=== PATIENT | male | born 1965 | race Caucasian/White ===

== ENCOUNTER 2017-11-20 10:56 | Emergency (ER) | payer OTHER ==
[2017-11-20 11:28] VITALS: BMI 33.4
--- NOTE | 2017-11-20 12:25 | PDOC ---
History of Present Illness - General History Source: Patient Exam Limitations: No Limitations - History of Present Illness Initial Comments: 11/20/17 15:07 Patient is a 55 year old male with a significant past medical history of Diabetes (Non insulin dependent), who presents to the ED with complaints of difficulty urinating for 3 days. Patient reports experiencing urinary urgency 3 days ago, stating he would feel the urge to urinate but only little trickles would begin to come out. He reports experiencing superpubic pain and episodes of hematuria, stating his urine stream would begin dark but look like blood towards the end of the duration. Pt endorses having subjective fever yesterday. Patient reports experiencing associated symptoms of diffuse superpubic pain, that he states is a sharp 7/10 pain that only began while he was urinating. Patient currently states he is in a monogamous relationship with as well as denies any participation in anal intercouse. Pt denies any back pain, abdominal pain. Denies chest pain, Sob. Denies nausea, vomiting. Denies , chills. Denies penile discharge, genital pain. Denies change in appetite, change in diet. Denies trauma to affected area. Denies any other symptoms. Allergies: None Social history: No smoking. No alcohol. No illicit drugs. Surgical history: PMD: Dr. Nieto <Vincent Grimes - Last Filed: 11/20/17 15:07> <Alex Millan - Last Filed: 11/20/17 16:40> - General Chief Complaint: Urinary Problem Stated Complaint: URINARY PROBLEM, JOINT PAIN Time Seen by Provider: 11/20/17 12:00 Past History <Vincent Grimes - Last Filed: 11/20/17 15:07> - Past Medical History COPD: No Diabetes: Yes Hypercholesterolemia: Yes - Suicide/Smoking/Psychosocial Hx Smoking History: Never smoked <Alex Millan - Last Filed: 11/20/17 16:40> - Past Medical History Allergies/Adverse Reactions: Allergies Allergy/AdvReac Type Severity Reaction Status Date / Time No Known Allergies Allergy Verified 11/20/17 11:25 Home Medications: Ambulatory Orders Atorvastatin Ca 40 mg PO DAILY 11/20/17 Glipizide ER 2.5 mg PO DAILY 11/20/17 Levofloxacin [Levaquin] 750 mg PO DAILY #4 tablet 11/20/17 Lisinopril-Hctz 10-12.5 mg Tab 10 mg PO DAILY 11/20/17 Metformin HCl 1,000 mg PO BID 11/20/17 Review of Systems - Review of Systems Able to Perform ROS?: Yes Comments:: 11/20/17 15:07 CONSTITUTIONAL: +subjectife fever No reported: Chills, Diaphoresis, Generalized Weakness, Malaise, Loss of Appetite HEENT: No reported: Rhinorrhea, Nasal Congestion, Throat Pain, Throat Swelling, Difficulty Swallowing, Mouth Swelling, Ear Pain, Eye Pain, Visual Changes CARDIOVASCULAR: No reported: Chest Pain, Syncope, Palpitations, Irregular Heart Rate, Lightheadedness, Peripheral Edema RESPIRATORY: No reported: Cough, Shortness of Breath, SOB with Exertion, Orthopnea, Wheezing , Stridor, Hemoptysis GASTROINTESTINAL: No reported: Abdominal pain, Abdominal Distension, Nausea, Vomiting, Diarrhea, Constipation, Melena, Hematochezia GENITOURINARY: +Hematuria. +Urinary urgency, No reported: Dysuria, Frequency, Hesitancy, Flank Pain, Genital Pain MUSCULOSKELETAL: +Diffuse lower back pain No reported: Myalgia, Arthralgia, Joint Swelling, Back pain, Neck Pain SKIN: No reported: Rash, Itching, Pallor HEMATOLOGIC/IMMUNOLOGIC: No reported: Easy Bleeding, Easy Bruising, Lymphadenopathy, Frequent infections ENDOCRINE: No reported: Unexplained Weight Gain, Unexplained Weight Loss, Heat Intolerance , Cold Intolerance NEUROLOGIC: No reported: Headache, Focal Weakness, Paresthesias, Vertigo, Lightheadedness, Unsteady Gait, Seizure, Mental Status Changes, Incontinence PSYCHIATRIC: No reported: Anxiety, Depression All Other Systems: Reviewed and Negative <Vincent Grimes - Last Filed: 11/20/17 15:07> *Physical Exam - Vital Signs Last Vital Signs Temp Pulse Resp BP Pulse Ox 98.9 F 96 H 19 109/72 97 11/20/17 11:25 11/20/17 11:25 11/20/17 11:25 11/20/17 11:25 11/20/17 11:25 - Physical Exam Comments: 11/20/17 15:08 GENERAL: The patient is awake, alert, and fully oriented, Nontoxic - in no acute distress. HEAD: Normocephalic, atraumatic. EYES: extraocular movements intact, sclera anicteric, conjunctiva clear. ENT: Normal voice, Moist mucous membranes. NECK: Normal range of motion, No JVD LUNGS: Breath sounds equal, clear to auscultation bilaterally. No wheezes, no rhonchi, no rales. HEART: Regular rate and rhythm, normal S1 and S2 without murmur, rub or gallop. ABDOMEN: Soft, nontender, normoactive bowel sounds. No guarding, no rebound. No masses. No CVA tenderness GASTROURINARY: No lesions. No testicular tenderness. Normal testicular lei. No penile discharge EXTREMITIES: Normal range of motion, no edema. No clubbing or cyanosis. No cords , erythema, or tenderness. NEUROLOGICAL: No facial asymmetry, Normal speech, normal gait. PSYCH: Normal mood, normal affect. SKIN: Warm, Dry, normal turgor. <Vincent Grimes - Last Filed: 11/20/17 15:07> - Vital Signs Last Vital Signs Temp Pulse Resp BP Pulse Ox 98.9 F 96 H 19 109/72 97 11/20/17 11:25 11/20/17 11:25 11/20/17 11:25 11/20/17 11:25 11/20/17 11:25 <Alex Millan - Last Filed: 11/20/17 16:40> ED Treatment Course - LABORATORY CBC & Chemistry Diagram: 11/20/17 12:51 11/20/17 12:51 - ADDITIONAL ORDERS Additional order review: Laboratory Results 11/20/17 11/20/17 12:51 12:51 Sodium 135 L Potassium 3.5 Chloride 99 Carbon Dioxide 28 Anion Gap 8 BUN 13 Creatinine 1.1 Creat Clearance w eGFR > 60 Random Glucose 186 H Calcium 9.4 Total Bilirubin 1.0 AST 23 ALT 69 Alkaline Phosphatase 66 Total Protein 7.6 Albumin 3.7 Urine Color Dkyellow Urine Appearance Cloudy Urine pH 6.0 Ur Specific [place] 1.021 Urine Protein 2+ H Urine Glucose (UA) 1+ H Urine Ketones Trace H Urine Blood 3+ H Urine Nitrite Negative Urine Bilirubin Negative Urine Urobilinogen Negative Ur Leukocyte Esterase 2+ H Urine WBC (Auto) 383 Urine RBC (Auto) 2730 Ur Epithelial Cells Rare 11/20/17 12:51 RBC 4.74 MCV 83.9 MCHC 32.8 RDW 13.0 MPV 8.9 Neutrophils % 86.2 H Lymphocytes % 5.3 L Monocytes % 8.2 Eosinophils % 0.0 Basophils % 0.3 - Medications Given in the ED: ED Medications Discontinued Medications Generic Name Dose Route Start Last Admin Trade Name Theresa PRN Reason Stop Dose Admin Levofloxacin 750 mg in 150 mls @ 100 mls/hr 11/20/17 13:24 11/20/17 13:49 Levaquin 750 Mg Premixed Ivpb - IVPB 11/20/17 14:53 100 mls/hr ONCE ONE Administration <Vincent Grimes - Last Filed: 11/20/17 15:07> - LABORATORY CBC & Chemistry Diagram: 11/20/17 12:51 11/20/17 12:51 <Alex Millan - Last Filed: 11/20/17 16:40> Medical Decision Making - Medical Decision Making 11/20/17 12:23 52y M hx of dm, htn, hl, presents with complaint of difficulty urinating for 2- 3 days, subjective fever, hematuria. Fever/chills started yesterday last dose of motrin this am. Endorsers myalgias, dysuria, frequency. Hematuria more prominent at the end of his stream Endorses suprapubic pain that is present only with urinating. no diarrhea, penile dc, back pain, chest pain, sob. suspect uti will ck basic labs as pt endorsed subjective fever 11/20/17 14:03 The patient's blood work was reviewed he has a white count of 17, his you a is also consistent with UTI. pt is well appearing, in no distress afebrile Will start with a dose of Levaquin will have patient follow-up with PMD 11/20/17 15:22 I discussed the physical exam findings, ancillary test results and final diagnoses with the patient. I answered all of the patient's questions. The patient was satisfied with the care received and felt comfortable with the discharge plan and treatment plan. The patient will call their primary care physician within 24 hours to arrange follow-up and will return to the Emergency Department with any new, persistent or worsening symptoms. 11/20/17 16:38 pt was noted to be febrile at discharge given tylenol i recommended admission for iv abx due to his fever, however the pt states he feels fine and would prefer outpatient management. I discussed with the patient that if he has persistent fever, any back pain, vomiting, admoinal pain or other concners, to return immediately and we will treat him for his UTI. will discharge the pt now with PMD fu with abx <Alex Millan - Last Filed: 11/20/17 16:40> *DC/Admit/Observation/Transfer - Attestations Scribe Attestion: 11/20/17 15:08 Documentation prepared by Vincent Grimes, acting as medical billing and coding instructor for Alex Millan MD, MD/DO. <Vincent Grimes - Last Filed: 11/20/17 15:07> - Discharge Dispostion Admit: No <Alex Millan - Last Filed: 11/20/17 16:40> Diagnosis at time of Disposition: Urinary tract infection Qualifiers: Urinary tract infection type: acute cystitis Hematuria presence: with hematuria Qualified Code(s): N30.01 - Acute cystitis with hematuria - Discharge Dispostion Disposition: HOME Condition at time of disposition: Improved - Prescriptions Prescriptions: Levofloxacin [Levaquin] 750 mg PO DAILY #4 tablet - Referrals Referrals: [facility] [Provider Group] - Patient Instructions Printed Discharge Instructions: DI for Urinary Tract Infection (UTI) Additional Instructions: Regrese al departamento de emergencia de inmediato con CUALQUIER sntoma nuevo, persistente o que empeore incluyendo fiebre / escalofros, dolor de espalda, dolor abdominal, incapacidad para tolerar la ingesta oral u otras preocupaciones. [place] los antibiticos segn lo prescrito. DEBE llamar y hacer un seguimiento con louie mdico maana para sherie mayor evaluaci n de clinton sntomas. Los resultados fueron discutidos con usted. Asegrese de que louie mdico revise los resultados de louie evaluacin de emergencia. Return to the emergency department immediately with ANY new, persistent or worsening symptoms including any fever/chills, back pain, abdominal pain, inability to tolerate oral intake or other concerns. Take your antibiotics as prescribed You MUST call and follow up with your doctor tomorrow for further evaluation of your symptoms. Results were discussed with you. Please make sure your doctor reviews the results of your emergency evaluation.
[2017-11-20 13:07] LABS: BASO % 0.3 % (0-2.0); HEMATOCRIT 39.8 % (35.4-49); HEMOGLOBIN 13.1 GM/dL (11.7-16.9); LYMPH % 5.3 % (8-40); MCH 27.5 pg (25.7-33.7); MCHC 32.8 g/dl (32.0-35.9); MEAN CELL VOLUME 83.9 fl (80-96); MEAN PLT VOLUME 8.9 fl (7.5-11.1); MONO % 8.2 % (3.8-10.2); NEUT % 86.2 % (42.8-82.8); PLATELET COUNT 145 K/MM3 (134-434); RBC 4.74 M/mm3 (4.00-5.60); WHITE BLOOD COUNT 17.2 K/mm3 (4.0-10.0)
[2017-11-20 13:10] LABS: URINE APPEARANCE CLOUDY; URINE BILIRUBIN NEGATIVE (NEGATIVE); URINE BLOOD 3+ (NEGATIVE); URINE COLOR DKYELLOW; URINE GLUCOSE (UA) 1+ (NEGATIVE); URINE KETONE TRACE (NEGATIVE); URINE LEUK ESTERASE 2+ (NEGATIVE); URINE NITRITE NEGATIVE (NEGATIVE); URINE PROTEIN 2+ (NEGATIVE); URINE UROBILINOGEN NEGATIVE mg/dL (0.2-1.0)
[2017-11-20 13:15] LABS: EPI CELLS RARE /HPF (FEW)
[2017-11-20 13:40] LABS: ALBUMIN 3.7 g/dl (3.4-5.0); ANION GAP 8 (8-16); BLOOD UREA NITROGEN 13 mg/dL (7-18); CALCIUM 9.4 mg/dL (8.5-10.1); CHLORIDE 99 mmol/L (98-107); CO2 28 mmol/L (21-32); CREATININE 1.1 mg/dL (0.7-1.3); GLUCOSE,RANDOM 186 mg/dL (74-106); POTASSIUM 3.5 mmol/L (3.5-5.1); SGOT/AST 23 U/L (15-37); SGPT/ALT 69 U/L (12-78); SODIUM 135 mmol/L (136-145); TOT PROT 7.6 g/dl (6.4-8.2)
[2017-11-20 13:41] LABS: ALK PHOS 66 U/L (45-117)
[2017-11-20] MEDS ORDERED: ACETAMINOPHEN 325 MG TABLET (FP) PO ONE (16:17)
[2017-11-20 16:20] VITALS: BP 120/62; PULSE 98
[2017-11-20] MEDS ORDERED: ACETAMINOPHEN 325 MG TABLET (FP) ONE (16:23)
[2017-11-20 17:05] VITALS: TEMP 99.8
--- NOTE | 2017-11-24 07:59 | PDOC ---
Patient Follow-up (Call Back) - Post ED Follow - Up Condition at time of discharge: Improved Disposition at time of original discharge: HOME Reason for Call Back: Abnwl. Microbiology (E. coli sensitive to Levoquin. PtLelia lopez treated at this time.)
== END 2017-11-20 17:05 | disposition home or self-care (01) ==
LOC: JER 10:56
DX: N30.01 Acute cystitis with hematuria (principal); E11.9 Type 2 diabetes mellitus without complications; Z79.4 Long term (current) use of insulin
CPT/HCPCS: 36415; 80053; 81003; 81015; 85025; 87086; 87186; 96365; 99281-25